=== PATIENT | female | born 1975 | race Caucasian/White ===

== ENCOUNTER 2017-01-11 04:41 | Inpatient (IN) ==
[2017-01-11 04:58] VITALS: BMI 22.0
[2017-01-11] MEDS: LR 1,000 ML IV SCH ×2 (05:43→06:42)
[2017-01-11] MEDS ORDERED: FAMOTIDINE PREMIX 20 MG/50 ML BAG IV ONE (06:00)
[2017-01-11] MEDS ORDERED: CEFAZOLIN PREMIX (MC ONLY) 2 GM/50 ML BAG IV ONE (06:00)
[2017-01-11] MEDS ORDERED: CITRIC ACID/SODIUM CITRATE 30ml PO ONE (06:00)
--- NOTE | 2017-01-11 06:22 | Anesthesia Preoperative Report ---
Anesthesia Epidural/Spinal Rec - Date and Time Date: 01/11/17 Preoperative Diagnosis: C Section Procedure: Plan: Spinal - Vital Signs Vital Signs: Temperature 97.9 F 01/11/17 05:24 Pulse Rate 72 01/11/17 05:24 Respiratory Rate 16 01/11/17 05:24 Blood Pressure 121/76 01/11/17 05:24 Pulse Oximetry 100 01/11/17 05:24 Oxygen Delivery Method Room Air NPO since: 2199 /Para: P:1 - Medictaions & Allergies Inpatient Medications: Current Medications Cefazolin Sodium/Dextrose (Kefzol Premix (Mc Only)) 2 gm in 50 mls @ 100 mls/ hr IV PREOP ONE Stop: 01/11/17 06:29 Last Admin: 01/11/17 06:17 Dose: 100 mls/hr Famotidine/Sodium Chloride (Pepcid Premix) 20 mg in 50 mls @ 100 mls/hr IV PREOP ONE Stop: 01/11/17 06:29 Last Admin: 01/11/17 05:44 Dose: 100 mls/hr Lactated Ringer's (Lactated Ringers) 1,000 mls @ 150 mls/hr IV .[id number] [facility] Last Admin: 01/11/17 05:43 Dose: 150 mls/hr Allergies/Adverse Reactions: Allergies Allergy/AdvReac Type Severity Reaction Status Date / Time latex Allergy Mild Verified 07/17/14 14:14 - Home Medications Home Medications: Home Medications Medication Instructions Recorded Confirmed Type Pnv95/Ferrous Fumarate/FA 1 tab PO DAILY #0 02/18/16 History [ Tablet] Aveeno Baby 12/25/16 History Dha [id number] 12/25/16 History - Medical History Other History: Reports: Now Anesthesia Reactions: nausea and vomiting - Surgical History Anesthesia Reactions: Nausea and Vomiting Hx Family Anesthesia Reaction: No History of Motion Sickness: No - Social History Smoking Status: Never smoker Second Hand Exposure: No Substance Use Type: does not use Alcohol Intake: never Alcohol Intake Frequency: does not drink Hx Chewing Tobacco Use: No - Pertinent Findings Lab Data: CBC and BMP 01/11/17 05:15 - Physical Exam Respiratory Exam: lungs clear, bilateral breath sounds equal Cardiovascular Exam: regular rate and rhythm, no murmur - Airway Assessment Mallampati Score: I TMD: 3 Fingerbreadths Neck Extension: good Overall Assessment: no airway concerns - ASA ASA Score: 2, E - Discussion Discussion: Discussed risks/options/alternatives of anesthesia and questions answered. Patient consents. Nursing pain assessment noted. Anesthesia Discussion: spouse Attestation Statement: Prior to the delivery of any anesthetic medication, I examined the patient, developed the plan, obtained the patient's consent and discussed the risk and benefits of the procedure with the patient/guardian.
[2017-01-11] MEDS ORDERED: ONDANSETRON 4 MG/2 ML INJECTION ONE (06:26)
[2017-01-11] MEDS ORDERED: FentaNYL 100 MCG/2 ML INJECTION ONE (06:26)
[2017-01-11] MEDS ORDERED: MORPHINE SULFATE PF 5mg/10ml INJ (Duramorph) ONE (06:26)
[2017-01-11] MEDS ORDERED: EPHEDRINE 50mg/ml INJECTION ONE (06:37)
[2017-01-11] MEDS ORDERED: OXYTOCIN 10 UNIT/ML INJECTION ONE (06:50)
[2017-01-11] MEDS ORDERED: OXYTOCIN DRIP 30 UNIT/500 ML ML IV SCH ×2 (07:00→08:09)
[2017-01-11] MEDS: D5LR 1,000 ML IV SCH ×2 (07:41→17:10)
[2017-01-11] MEDS ORDERED: SIMETHICONE 80 MG CHEWABLE TABLET PO PRN (08:09)
[2017-01-11] MEDS ORDERED: CALCIUM CARBONATE Chewable 500mg TABLET PO PRN (08:09)
[2017-01-11] MEDS ORDERED: HYDROCORTISONE 2.5% CREAM 30gm RECTALLY PRN (08:09)
[2017-01-11] MEDS ORDERED: DiphenhydrAMINE 25 MG CAPSULE PO PRN (08:09)
[2017-01-11] MEDS ORDERED: ONDANSETRON 4 MG/2 ML INJECTION IVP PRN (08:09)
[2017-01-11] MEDS ORDERED: ACETAMINOPHEN 500 MG TABLET PO PRN (08:09)
[2017-01-11] MEDS ORDERED: METOCLOPRAMIDE 10mg/2ml INJECTION IVP PRN (08:09)
--- NOTE | 2017-01-11 11:36 | Operative Note ---
DATE: 01/11/2017 PREOPERATIVE DIAGNOSIS 1. 41-year-old white female, G4, P1, at 38.4 weeks gestational age. 2. Advanced maternal age. 3. Previous x 1. 4. Premature rupture of membranes. POSTOPERATIVE DIAGNOSIS: Male infant, Apgars, 2972 g (6 pounds 9 ounces) (Tobin Belliot). PROCEDURE: Repeat low transverse section. PRIMARY SURGEON: Cristian Stallworth MD [employer] MATERIAL: J Carlos Irving DO EBL: 600 ml ANESTHESIA: Spinal by Zhen Rodrigues CRNA COMPLICATIONS: None. This is a patient of Dr. Macdonald whose water broke in the middle of the night. She came in and this was confirmed with [facility]. She has had a previous C- section and has a repeat scheduled for January 16. Because of premature rupture of membranes and then subsequent labor with previous , we went ahead and did the repeat at this point in time. DESCRIPTION OF PROCEDURE After adequate spinal anesthesia, the patient was prepped and draped in the left lateral decubitus position. A Pfannenstiel skin incision was made with a sharp knife and carried down the fascia, which was incised transversely with the Parker scissors. The rectus fascia was bluntly and sharply dissected off the rectus muscle. The rectus muscle was divided, and the peritoneum was isolated, elevated, entered with the Metzenbaum scissors and extended cephalad and caudad. The bladder blade was then inserted. The lower vesicouterine fold of the peritoneum was isolated and incised transversely. The bladder was bluntly dissected off the lower uterine segment. The bladder blade was reinserted. Then using a sharp knife, a transverse incision was made in the lower uterine segment. This was extended with my fingers. Male infant was delivered from the vertex position without difficulty. Head was deeply seated in the pelvis. was bulb suctioned after delivery of the head and then again after delivery of the body and the cord was doubly clamped and cut but very long so that blood could infuse. Infant was received by Dr. Reid of pediatrics. The placenta was expressed manually and was intact. The uterus was then allowed to fall upon the external abdominal wall. The endometrial cavity was cleansed using moist lap sponges. The uterus was closed using 0-Monocryl in a running locking fashion. Hemostasis was confirmed. The bladder flap was then reapproximated with the visceral peritoneum using 3-0 Vicryl in a running nonlocking fashion. The posterior cul-de-sac was cleansed of old blood clots and the tubes and ovaries were examined and found to be normal in size, shape and appearance. After hemostasis was again confirmed, the uterus was then carefully returned to the abdominal cavity. The abdomen was then closed in layers. The peritoneum was closed using 2-0 Vicryl in running nonlocking fashion. The fascia was closed using 0-Vicryl in a running nonlocking fashion bilaterally from the lateral aspects medially. Hemostasis was achieved with the subcutaneous tissue and then the skin was closed using 4-0 Vicryl in a subcuticular fashion and then Steri-Strips were placed.. The patient tolerated the procedure well and went to the recovery room in stable condition. Pad, sponge and needle counts were correct and urine postop was clear and free flowing. MTDD
--- NOTE | 2017-01-11 13:06 | Anesthesia Postoperative Note ---
- Date and Time Date: 01/11/17 Time: 13:06 - Status Patient Participated in Evaluation: Patient Participated in Person Vital Signs: Temperature 97.9 F 01/11/17 05:24 Pulse Rate 72 01/11/17 05:24 Respiratory Rate 16 01/11/17 05:24 Blood Pressure 121/76 01/11/17 05:24 Pulse Oximetry 100 01/11/17 05:24 Oxygen Delivery Method Room Air Respiratory Function: Airway Patent Cardiovascular Function: Regular Pulse EKG Rhythm: Normal Sinus Rhythm Mental Status: Alert and Oriented Pain Intensity: 5 Hydration: Taking PO Fluids Complications During Recover: None Apparent - Follow-Up Instructions Instructions: Per Surgeon
[2017-01-11] MEDS: IBUPROFEN 800 MG TABLET PO PRN ×2 (13:09→21:47)
[2017-01-11] MEDS: SIMETHICONE 80 MG CHEWABLE TABLET PO SCH ×3 (14:15→21:47)
[2017-01-11] MEDS: DOCUSATE CALCIUM 240 MG CAPSULE PO SCH (14:15)
[2017-01-11] MEDS: SALINE FLUSH 10ml SYRINGE IVF PRN ×2 (16:16→17:10)
[2017-01-11] MEDS: HYDROCODONE/APAP 5mg/325mg TABLET PO PRN ×2 (16:29→20:22)
--- NOTE | 2017-01-11 17:33 | Progress Note ---
OB PP Progress Note Free Text - Date Date: 01/11/17 - Progress Note Progress Note: No complaints. AVSS Stable Cont routine care.
[2017-01-12] MEDS: IBUPROFEN 800 MG TABLET PO PRN ×2 (07:03→16:30)
[2017-01-12] MEDS: HYDROCODONE/APAP 5mg/325mg TABLET PO PRN ×4 (07:03→20:23)
[2017-01-12] MEDS: SIMETHICONE 80 MG CHEWABLE TABLET PO SCH ×2 (08:52→14:29)
[2017-01-12] MEDS: DOCUSATE CALCIUM 240 MG CAPSULE PO SCH (08:52)
[2017-01-12] MEDS: D5LR 1,000 ML IV SCH (08:52)
--- NOTE | 2017-01-12 10:01 | OB/GYN Progress Note ---
OB-PP Progress Note - General PPD1 - Subjective Date: 01/12/17 Lochia: Minimal Pain: contolled Voiding: voiding Nausea or Vomiting Present: No - Objective Vital Signs: Last Vital Signs Temp 97.7 F 01/12/17 08:35 Pulse 78 01/12/17 08:35 Resp 16 01/12/17 08:35 BP 124/87 01/12/17 08:35 Pulse Ox 99 01/12/17 08:35 Urine Output: good General: alert and oriented Abdomen: fundus firm, non-tender Incision: dressed Extremities: non-tender Laboratory: Laboratory Results - last 24 hr 01/11/17 13:39 WBC 14.7 H D RBC 4.03 Hgb 12.0 Hct 35.4 L MCV 87.8 MCH 29.8 MCHC 33.9 RDW Std Deviation 41.1 Plt Count 166 MPV 12.2 - Assessment Assessment: SP, Repeat C/S - Plan Plan: routine care Expected date of discharge: 01/13/17
[2017-01-13] MEDS: HYDROCODONE/APAP 5mg/325mg TABLET PO PRN ×4 (00:25→18:03)
[2017-01-13] MEDS: IBUPROFEN 800 MG TABLET PO PRN ×2 (00:25→11:53)
[2017-01-13] MEDS: SIMETHICONE 80 MG CHEWABLE TABLET PO SCH ×3 (00:26→18:05)
--- NOTE | 2017-01-13 09:07 | OB/GYN Progress Note ---
OB-PP Progress Note - General PPD2 Maternal Group B Strep: Negative Maternal blood type: A+ Maternal Rubella Status: Immune - Subjective Date: 01/13/17 Lochia: Minimal Pain: contolled Voiding: voiding - Objective Vital Signs: Last Vital Signs Temp 97.9 F 01/13/17 04:00 Pulse 76 01/13/17 04:00 Resp 16 01/13/17 04:00 BP 110/68 01/13/17 04:00 Pulse Ox 98 01/13/17 04:00 Urine Output: good General: alert and oriented Abdomen: fundus firm, non-tender Incision: normal, intact Extremities: non-tender - Assessment (1) Status post repeat low transverse section Status: Acute - Plan Plan: routine care, continue PNV She's unsure if she wants to go home today or tomorrow.
[2017-01-13] MEDS: DOCUSATE CALCIUM 240 MG CAPSULE PO SCH (11:54)
[2017-01-13 18:18] VITALS: BP 136/74; PULSE 78; RESP 16; TEMP 98.2; O2SAT 99
== END 2017-01-13 19:15 | disposition home or self-care (01) | DRG 766 ==
LOC: OBOBS 04:41 → MC 04:45
PROVIDERS: ADMIT Obstetrics & Gynecology; ATTEND Obstetrics & Gynecology